=== PATIENT | male | born 1960 | race Caucasian/White ===

== ENCOUNTER 2018-09-12 07:18 | Day surgery (SDC) | payer OTHER ==
[~2018-09-12] VITALS: Ht 172.7 cm; Wt 89.1 kg
[~2018-09-12 07:18] MED LIST: CeFAZolin 2 GM/DEXTROSE 50 ML IV ONE; RINGERS SOLUTION,LACTATED 1,000 ML IV ONE
[2018-09-12] MEDS ORDERED: BUPIVACAINE HCL/PF 0.5% 30 ML VIAL ONE (07:55)
[2018-09-12] MEDS ORDERED: GUM MASTIC/STORAX/MSAL/ALCOHOL LIQUID 0.67 ML VIAL TP ONE (07:55)
[2018-09-12] MEDS ORDERED: SODIUM CHLORIDE 0.9% 0 ML IV ONE (07:55)
[2018-09-12] MEDS ORDERED: LIDOCAINE 2%/EPI 1:200,000/PF 20 ML VIAL ONE (07:55)
[2018-09-12] MEDS ORDERED: RINGERS SOLUTION,LACTATED 1,000 ML IV ONE (10:40)
[2018-09-12] MEDS ORDERED: ACETAMINOPHEN 500 MG TABLET PO PRN (11:30)
[2018-09-12] MEDS ORDERED: IBUPROFEN 600 MG TABLET PO PRN (11:30)
[2018-09-12] MEDS ORDERED: HYDROCODONE/ACETAMINOPHEN 5-325 MG TABLET PO PRN (11:30)
[2018-09-12] MEDS ORDERED: MEPERIDINE-PF 25 MG/ML VIAL ONE (11:44)
[2018-09-12] MEDS ORDERED: MEPERIDINE-PF 25 MG/ML VIAL IVP STA (11:46)
[2018-09-12] MEDS ORDERED: ROCURONIUM BROMIDE 10 MG/ML 5 ML VIAL IVP ONE (12:00)
[2018-09-12] MEDS ORDERED: ONDANSETRON HCL 4 MG/2 ML VIAL IVP ONE (12:00)
[2018-09-12] MEDS ORDERED: KETOROLAC TROMETHAMINE 60 MG/2 ML VIAL IM ONE (12:00)
[2018-09-12] MEDS ORDERED: METOCLOPRAMIDE HCL 5 MG/ML 2 ML VIAL IVP ONE (12:00)
[2018-09-12] MEDS ORDERED: GLYCOPYRROLATE 0.2 MG/ML VIAL IM ONE (12:00)
[2018-09-12] MEDS ORDERED: PHENYLEPHRINE HCL 10 MG/ML VIAL IVP ONE (12:00)
[2018-09-12] MEDS ORDERED: LIDOCAINE/PF 2% 5 ML VIAL INJ ONE (12:00)
[2018-09-12] MEDS ORDERED: DEXAMETHASONE SOD PHOS 4 MG/ML VIAL IVP ONE (12:00)
[2018-09-12] MEDS ORDERED: NEOSTIGMINE METHYLSULFATE 1 MG/ML 10 ML VIAL IVP ONE (12:00)
[2018-09-12] MEDS ORDERED: HYDROmorphone 2 MG/ML SYRINGE ONE (12:06)
[2018-09-12] MEDS ORDERED: HYDROmorphone 2 MG/ML SYRINGE IVP STA (12:07)
[2018-09-12] MEDS ORDERED: MIDAZOLAM HCL 2 MG/2 ML VIAL IVP ONE (12:30)
[2018-09-12] MEDS ORDERED: FentaNYL CITRATE-PF 100 MCG/2 ML VIAL IVP ONE (12:30)
== END 2018-09-12 13:35 | disposition home or self-care (01) ==
LOC: SURGERY 07:18
PROVIDERS: ATTEND Surgery
DX: K40.90 Unilateral inguinal hernia, without obstruction or gangrene, not specified as recurrent (principal); D17.6 Benign lipomatous neoplasm of spermatic cord; E66.9 Obesity, unspecified; F10.21 Alcohol dependence, in remission; R94.31 Abnormal electrocardiogram [ECG] [EKG]; Z86.19 Personal history of other infectious and parasitic diseases; Z87.891 Personal history of nicotine dependence; Z68.29 Body mass index [BMI] 29.0-29.9, adult; Z83.3 Family history of diabetes mellitus
CPT/HCPCS: 49650; 88304; 93005; C1781 ×2; J0690; J1100; J1170; J1885; J2175; J2250; J2370; J2405; J2765; J3010; J3490 ×4; J7120; J7030